=== PATIENT | female | born 1970 | race Caucasian/White ===

== ENCOUNTER 2024-12-03 11:07 | Emergency (ER) | payer BC ==
[~2024-12-03] VITALS: Ht 160 cm; Wt 83.9 kg
[2024-12-03 11:55] LABS: BASOPHILS # (AUTO) 0.04 K/uL (0.00-0.20); BASOPHILS % (AUTO) 0.3 % (0.0-5.0); EOSINOPHILS # (AUTO) 0.07 K/uL (0.00-0.70); EOSINOPHILS % (AUTO) 0.6 % (0.0-8.0); IMMATURE GRANULOCYTE ABSOLUTE 0.04 K/uL (0-1); LYMPHOCYTES # (AUTO) 1.3 K/uL (1.0-4.8); LYMPHOCYTES % (AUTO) 10.3 % (21.0-51.0); MEAN CORPUSCULAR HEMOGLOBIN 31.3 pg (27.0-33.0); MEAN CORPUSCULAR VOLUME 92.1 fL (79-99); MONOCYTES # (AUTO) 0.7 K/uL (0.1-1.0); MONOCYTES % (AUTO) 5.2 % (3.0-13.0); NEUTROPHILS # (AUTO) 10.5 K/uL (1.8-7.7); NEUTROPHILS % (AUTO) 83.3 % (40.0-77.0); PLATELET COUNT (AUTO) 279 K/uL (130-400); RED BLOOD CELL COUNT(AUTO) 4.67 MIL/uL (4.00-5.50); RED CELL DISTRIBUTION WIDTH 11.9 % (11.0-15.5); WHITE BLOOD COUNT (AUTO) 12.6 K/uL (4.8-10.8)
[2024-12-03 12:01] LABS: CREATININE 0.9 mg/dL (0.5-1.0); POTASSIUM 4.1 mmol/L (3.5-5.1)
[2024-12-03] MEDS: LIDOCAINE HCL 1% 20 ML VIAL INJ SCH (13:02)
--- NOTE | 2024-12-03 13:26 | ERN ---
ED Note History of Present Illness Stated Complaint: ABSCESS Chief Complaint: Abscess Time Seen by MD: 11:17 Time Seen by Midlevel: 11:22 Dictation: 54-year-old female with past medical history of migraines and breast cancer. Coming in complaining of pain to the rectal area onset five days ago. Patient states she drove from [place] here in states the pain started after that. States she also had a fever of 100.4 on Saturday. Denies any nausea or vomiting. Patient states she has mild discomfort upon having a BM. Allergies: Coded Allergies: Penicillins (Unverified Allergy, Unknown, 12/03/24) Sulfa (Sulfonamide Antibiotics) (Unverified Allergy, Unknown, 12/03/24) Past Medical History Past Medical History: Other Additional Past Medical Hx: MIGRAINES, BREAST CANCER HX Surgical History: Hysterectomy Surgical History Other: RIGHT MASTECTOMY Review of System Dictation Constitutional: Negative for fever,chills, and weight loss Eyes: Negative for injury, pain,redness, and discharge ENT: Negative for injury,pain or swelling Cardiovascular: Negative for chest pain, palpitations, and edema Respiratory: Negative for shortness of breath, cough, and wheezing, Abdomen/GI: Negative for abdominal pain, nausea, vomiting, diarrhea, and constipation Back: Negative for injury and pain : Negative for injury, bleeding and discharge, pain to rectal area MS/Extremity: Negative for injury and deformity Skin: Negative for rash, and discoloration Neuro: Negative for headache, weakness, numbness, tingling, and seizure Psych: Negative for suicide ideation, homicidal ideation, and hallucinations Review of Systems: was completed Initial Vital Sign VS Vital Signs Date Time Temp Pulse Resp B/P (MAP) Pulse Ox O2 Delivery O2 Flow Rate FiO2 12/03/24 11:08 98.6 92 16 148/90 Room Air 12/03/24 13:05 98 0 21 Physical Exam Dictation General: awake, alert, NAD Head/Face: Normocephalic, atraumatic Eyes: PERRL, EOMI, vision at baseline ENT: oral cavity clear, TMs clear, no signs of infection Neck: Trachea midline, supple, no nuchal rigidity Cardiovascular: RRR, normal S1/S2, No MRGs, no JVD Respiratory: CTAB, no respiratory distress, No rales or wheezes Abdomen: Soft, non-tender, non-distended, normal bowel sounds, no guarding or rebound. Skin: Warm, dry, normal turgor, no rash MS/Extremity: Pulses equal, no cyanosis, neurovascular intact, FROM Neuro: COAx4, GCS 15, strength 5/5, CN 2-12 intact, normal cerebellar exam, normal gait, Psych: Normal behavior, mood, and affect normal Rectal area was assessed by myself and ER MD, there is a very small 1 cm abscess noted to the 3:00 a.m. area of the rectum. There is no fluctuance, no induration, no redness or streaking. Patient has mild tenderness on palpation. Results (Laboratory/Radiology) Laboratory/Radiology Laboratory Tests Test 12/03/24 11:35 White Blood Count 12.6 K/uL (4.8-10.8) H Red Blood Count 4.67 MIL/uL (4.00-5.50) Hemoglobin 14.6 g/dL (12.0-16.0) Hematocrit 43.0 % (36-48) Mean Corpuscular Volume 92.1 fL (79-99) Mean Corpuscular Hemoglobin 31.3 pg (27.0-33.0) Mean Corpuscular Hemoglobin Concent 34.0 g/dL (32.0-36.0) Red Cell Distribution Width 11.9 % (11.0-15.5) Platelet Count 279 K/uL (130-400) Mean Platelet Volume 9.8 fL (7.5-10.5) Immature Granulocyte % (Auto) 0.3 % (0-1) Neutrophils (%) (Auto) 83.3 % (40.0-77.0) H Lymphocytes (%) (Auto) 10.3 % (21.0-51.0) L Monocytes (%) (Auto) 5.2 % (3.0-13.0) Eosinophils (%) (Auto) 0.6 % (0.0-8.0) Basophils (%) (Auto) 0.3 % (0.0-5.0) Neutrophils # (Auto) 10.5 K/uL (1.8-7.7) H Lymphocytes # (Auto) 1.3 K/uL (1.0-4.8) Monocytes # (Auto) 0.7 K/uL (0.1-1.0) Eosinophils # (Auto) 0.07 K/uL (0.00-0.70) Basophils # (Auto) 0.04 K/uL (0.00-0.20) Absolute Immature Granulocyte (auto 0.04 K/uL (0-1) Nucleated Red Blood Cells 0.0 % (0.0-0.19) Sodium Level 141 mmol/L (136-145) Potassium Level 4.1 mmol/L (3.5-5.1) Chloride Level 106 mmol/L (101-111) Carbon Dioxide Level 26 mmol/L (21-32) Blood Urea Nitrogen 13 mg/dL (7-18) Creatinine 0.9 mg/dL (0.5-1.0) Glomerular Filtration Rate Calc 75 mL/min (>90) Random Glucose 100 mg/dL (70-105) Total Calcium 9.4 mg/dL (8.5-10.1) Labs Reviewed?: Yes ED Course ED Course Orders Procedure Category Date Status Time Cbc With Differential LAB 12/03/24 Complete 11:12 Basic Metabolic Panel LAB 12/03/24 Complete 11:12 Lidocaine Hcl 1% 20ml PHA 12/03/24 In Process Vial (Lidocaine Hc 11:30 Ketorolac PHA 12/03/24 Complete Tromethamine 15mg/Ml 13:12 Clindamycin Ivpb PHA 12/03/24 Complete 600mg/50ml (Cleocin 13:12 Current Medications Medications (Trade) Dose Ordered Sig/Kaitlin Route PRN Reason Start Time Stop Time Status Last Admin Dose Admin Clindamycin HCl/ Dextrose 50 ml @ 100 mls/hr Q8H STAT IV 12/03/24 13:12 12/03/24 13:41 DC 12/03/24 13:28 Ketorolac Tromethamine (toRADol) 15 mg ONCE STAT IV 12/03/24 13:12 12/03/24 13:14 DC 12/03/24 13:28 Lidocaine HCl (Lidocaine HCl 1% 20ml Vial) 20 ml ONCE INJ 12/03/24 11:30 01/02/25 11:29 12/03/24 13:02 Vital Signs Date Time Temp Pulse Resp B/P (MAP) Pulse Ox O2 Delivery O2 Flow Rate FiO2 12/03/24 13:05 98.2 88 16 145/85 98 Room Air* 0 21 12/03/24 11:08 98.6 92 16 148/90 Room Air Medical Decision Making MDM MDM: 54-year-old female with past medical history of migraines and breast cancer. Coming in complaining of pain to the rectal area onset five days ago. Patient states she drove from [place] here in states the pain started after that. States she also had a fever of 100.4 on Saturday. Denies any nausea or vomiting. Patient states she has mild discomfort upon having a BM. CBC shows mild leukocytosis of 12, no anemia, no thrombocytopenia. Chemistry unremarkable. Discussed with the patient the abscess is too small to drain, we will cause more pain and discomfort. Discussed the give patient IV antibiotics here with pain medication and then gave her a prescription to take home and c ontinue the warm baths at home. Patient agreed with plan. Differential diagnosis: Perirectal abscess, thrombosed hemorrhoids Rationale: Tests considered and ordered secondary to shared decision making include: Previous outside records reviewed: Old ER visits. Risk of complication and/or morbidity or mortality of patient management: None Medications-Per medication reconciliation Need for hospitalization: Patient does not meet criteria for hospitalization. Need for emergency major/minor surgery: No There are no social concerns with this patient. Prescription drug management Prescriptions will include symptomatic care Patient's prior external medical records from other ER visits were reviewed by me as indicated. Prior testing and results from previous visits were reviewed. Prior tests were taken into account with medical decision making and resource utilization, independent historian/historians were used to obtain complete medical history. I independently interpreted the test that were performed, results were reviewed by me and considered findings on radiology if ordered. Medical management and examination interpretation discussions were had by me with other qualified healthcare professionals as indicated for the patient's care. DX & DISP Disposition: Discharge Departure Impression: Primary Impression: Perirectal abscess Condition: Stable Scripts Clindamycin HCl (Clindamycin HCl) 300 Mg Capsule 1 CAP PO QID for 10 Days, #30 CAP 0 Refills Prov: SUKHDEEP PARIS NP 12/03/24 Additional Instructions: Keep applying warm compresses, take antibiotics as prescribed. Return to the ER if you develop any worsening symptoms like fevers, chills nausea or vomiting or any blood in stool. Referrals: SELF,REFERRAL (PCP) Time of Disposition: 14:07 I have reviewed the case, and I agree with, Diagnosis and Plan SUKHDEEP PARIS NP Dec 03, 2024 13:26
[2024-12-03] MEDS: ketOROlac 15MG/ML VIAL (15MG/ML) IV STA (13:28)
[2024-12-03] MEDS: CLINDAMYCIN IVPB 600MG/50ML 50 ML IV STA (13:28)
[2024-12-03] MEDS ORDERED: CLIN-141 PO (14:07)
[2024-12-03 14:17] VITALS: BP 145/85; PULSE 80; RESP 16; TEMP 98.3; O2SAT 98
== END 2024-12-03 14:23 | disposition home or self-care (01) ==
LOC: EDH 11:07
DX: K61.1 Rectal abscess (principal); G43.909 Migraine, unspecified, not intractable, without status migrainosus; Z88.0 Allergy status to penicillin; Z88.2 Allergy status to sulfonamides; Z90.710 Acquired absence of both cervix and uterus
CPT/HCPCS: 99284; 96374; 96375; 80048; 85025; 36415; J1885; J3490